=== PATIENT | male | born 1975 | race Caucasian/White ===

== ENCOUNTER → 2017-10-12 | Outpatient (CLI) | payer OTHER | LOC: BMCIMAGING 14:11 | PROVIDERS: ATTEND Family Medicine | DX: S82.401A Unspecified fracture of shaft of right fibula, initial encounter for closed fracture (principal) ==

== ENCOUNTER → 2017-10-24 | Outpatient (CLI) | payer OTHER | LOC: BMCIMAGING 09:38 | PROVIDERS: ATTEND Podiatrist Foot & Ankle Surgery | DX: S89.302D Unspecified physeal fracture of lower end of left fibula, subsequent encounter for fracture with routine healing (principal) ==

== ENCOUNTER → 2017-10-31 | Outpatient (CLI) | payer OTHER | LOC: BMCLAB 11:47 | PROVIDERS: ATTEND Podiatrist Foot & Ankle Surgery | DX: Z98.1 Arthrodesis status (principal); S82.401D Unspecified fracture of shaft of right fibula, subsequent encounter for closed fracture with routine healing ==

== ENCOUNTER → 2017-11-23 | Outpatient (CLI) | payer OTHER | LOC: BMCIMAGING 08:19 | PROVIDERS: ATTEND Podiatrist Foot & Ankle Surgery | DX: S82.401D Unspecified fracture of shaft of right fibula, subsequent encounter for closed fracture with routine healing (principal) ==

== ENCOUNTER → 2017-12-21 | Outpatient (CLI) | payer OTHER | LOC: BMCIMAGING 07:54 | PROVIDERS: ATTEND Podiatrist Foot & Ankle Surgery | DX: S82.831D Other fracture of upper and lower end of right fibula, subsequent encounter for closed fracture with routine healing (principal) ==